=== PATIENT | female | born 1980 | race Caucasian/White ===

== ENCOUNTER 2023-12-21 13:52 | Outpatient (CLI) | payer OTHER, SELFPAY ==
[2023-12-21 17:31] LABS: Bacterial Vaginosis* Negative (Negative); Candida glab/krus NOT DETECTED (No Detected); Candida species NOT DETECTED (No Detected); Trichomonas vaginalis NOT DETECTED (No Detected)
== END 2023-12-21 13:53 | disposition home or self-care (01) ==
PROVIDERS: Visit Provider Registered Nurse
DX: N89.8 Other specified noninflammatory disorders of vagina (principal); R35.0 Frequency of micturition
CPT/HCPCS: 81513; 87086; 87481; 87624; 87661

== ENCOUNTER 2024-02-14 18:21 | Outpatient (CLI) | payer OTHER, SELFPAY ==
--- NOTE | 2024-02-14 18:40 | CRLHL7_ITS ---
For Patients: As a result of the Century Cures Act, medical imaging exams and procedure reports are released immediately into your electronic medical record. You may view this report before your referring provider. If you have questions, please contact your health care provider. BILATERAL SCREENING MAMMOGRAM WITH COMPUTER-AIDED DETECTION AND TOMOSYNTHESIS TECHNIQUE: CC and MLO views were obtained. These mammographic images have been obtained using full-field digital technique. These mammographic images were interpreted with the benefit of computer-aided detection. Breast Tomosynthesis was used in this interpretation. COMPARISON FILM: Baseline. FINDINGS: There are scattered areas of fibroglandular density IMPRESSION: There is no radiographic evidence for malignancy. ASSESSMENT: BI-RADS Category 1: Negative RECOMMENDATION: Routine screening mammogram in 1 year. A lay language report of this examination will be provided to the patient. Grady Smith M.D. Diagnostic Radiologist [email or web address] IRENE/Dictated by: Grady Smith MD @ 02/15/2024 9:01:00 AM (Electronically Signed)
== END 2024-02-14 18:22 | disposition home or self-care (01) ==
LOC: MAMMO 18:22
PROVIDERS: Visit Provider Registered Nurse
DX: Z12.31 Encounter for screening mammogram for malignant neoplasm of breast (principal)
CPT/HCPCS: 77063; 77067

== ENCOUNTER 2024-05-30 13:22 | Emergency (ER) | payer OTHER, SELFPAY ==
--- OUTSIDE RECORDS SUMMARY | 2024-05-30 13:25 | XMS_ITS | Clinical Summary ---
Author Organization [facility] Address [place], [place] [address] Care Team Providers Care Bilingual Teacher Name Role Phone Rosa Isela Parr Primary Care Provider [phone]- [phone] Allergies No known active allergies Medications tiZANidine (ZANAFLEX) 2 mg tabletIndications:C ervical paraspinal muscle spasm 1 tab up to three times daily, use mostly at night for muscle relaxer. May make you drowsy. 45 tablet. 0 Active spironolactone (ALDACTONE) 50 mg tabletIndications:H irsutism TAKE 1 TABLET BY MOUTH TWICE DAILY 180 Tablet 2 Active miscellaneous medical supply misc As directed. Ped pillows size 10 womens 1 unit 2 Active metFORMIN (GLUCOPHAGE) 500 mg tabletIndications:P COS (polycystic ovarian syndrome) TAKE 1 TABLET BY MOUTH WITH DINNER FOR 1 TO 2 WEEKS. INCREASE TO 1 TABLET WITH DINNER AND 1 TABLET WITH BREAKFAST 180 Tablet 2 Active PROXY UNCLASSIFIED MED (ORDER AWAITING PHARMACY ENTRY) Reports dietary supplements: Vitamin D, Vitamin B12, Magnesium 4 Active pantoprazole (PROTONIX) 40 mg delayed-release tabletIndications:G astroesophageal reflux disease without esophagitis Take 1 Tablet (40 mg) by mouth once daily before a meal. 90 Tablet 3 4 Active SUMAtriptan (IMITREX) 25 mg tabletIndications:C hronic nonintractable headache, unspecified headache type Take 1 Tablet (25 mg) by mouth 2 times daily if needed for Migraine. Give at minimum 2hrs apart. Max Dose: 200mg per 24hrs. 10 Tablet 3 4 Active warfarin (COUMADIN) 7.5 mg tabletIndications:H eterozygous factor V Leiden mutation (HC),Pulmonary embolism, unspecified chronicity, unspecified pulmonary embolism type, unspecified whether acute cor pulmonale present (HC),Anticoagulatio n monitoring, INR range 2-3 Take by mouth 7.5 mg (7.5 mg x 1) every day in the evening OR as directed 90 Tablet 4 Active warfarin (COUMADIN) 5 mg tabletIndications:H eterozygous factor V Leiden mutation (HC),Pulmonary embolism, unspecified chronicity, unspecified pulmonary embolism type, unspecified whether acute cor pulmonale present (HC),Anticoagulatio n monitoring, INR range 2-3 *Not currently using this strength tablet 4 Active Active Problems Problem Noted Date Diagnosed Date Anticoagulation monitoring, INR range 2-3 2023 Pulmonary embolism, unspecif ied chronicity, unspecified pulmonary embolism type, unspecified whether acute cor pulmonale present 12/02/2023 Gastroesophageal reflux disease without esophagi tis 02/11/2021 Vaginal pain 01/02/2019 Interstitial cystitis (chronic) without hematuri a 01/02/2019 Polycystic ovarian syndrome 08/06/2018 S/P Right Knee Arthroscopic PartialLateral Meniscectomy 35%, 01/05/[address] 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 Acute lateral meniscus tear of right knee Resolved Problems Problem Noted Date Diagnosed Date Resolved Date Obesity complicating peripre gnancy, antepartum 03/22/2013 12/28/2016 Right facial numbness 03/05/20132016 03/05/2013 12/28/2016 Smoker 12/04/2012 12/05/2023 Cigarette nicotine dependenc e without complication 07/26/2007 12/05/2023 Overview (12/30/2020): Tobacco Abuse Encounters Date Type Department Care Team Description 05/30/2024 Nurse Triage [facility] [address] [facility] [address] Rosa Isela Parr PA Head Injury 04/12/2024 10:15 AM ASSOCIATE PROFESSOR PHYSICIAN Orders Only [facility] [address] [place] [id number] Lab, [facility] 04/12/2024 Refill [facility] [address] [place] [address] Rosa Isela Parr PA Refill Request (Warfarin) 04/12/2024 Anticoagulation (warfarin) [facility] [address] [facility] [address] [facility], [facility] Anticoagulation 04/12/2024 Travel 03/28/2024 1:40 PM ASSOCIATE PROFESSOR PHYSICIAN Office Visit [facility] [place] [facility] [address] [place] [address] Brandon Villanueva MD Consult (Mass of temporal lobe, chronic nonintractable headache, vision changes /Ref: Rosa Isela Parr PA-C /MR Head/Brain 12/29/23, 06/27/20, 03/05/13 /CT Head/Brain 10/31/21 @ [facility] (pushed 01/04/24) /CT Head/Brain 06/23/20, 03/05/13 /MR Cervical 01/24/19 /MRA Head/Brain/Neck 03/05/13 /MR Head/Brain Venogram 03/05/13 /[facility] notes in scans /[facility] notes in scans ) 03/28/2024 11:15 AM ASSOCIATE PROFESSOR PHYSICIAN Orders Only [facility] [address] [facility] [address] [facility] 03/28/2024 Anticoagulation (warfarin) [facility] [address] [place] [address] 1, [facility] Anticoagulation 03/28/2024 Travel 03/21/2024 Telephone [facility] [address] [place] [address] Rosa Isela Parr PA Anticoagulation (Questions) 03/13/2024 Telephone [facility] [address] [place] [address] Rosa Isela Parr PA Results (INR ) 03/12/2024 2:15 PM ASSOCIATE PROFESSOR PHYSICIAN Ancillary Procedure [address] [address] 03/12/2024 1:25 PM ASSOCIATE PROFESSOR PHYSICIAN Office Visit [address] [address] Kathie Vazquez MD Arm Pain/problem (Right shoulder/Arm, NKI, can't rotate/lift arm. Tramadol and muscle relaxer does not work ) 03/12/2024 Travel 03/01/[address] [address] Rosa Isela Parr PA Anticoagulation (Unable to contact) 02/28/2024 8:30 AM ASSOCIATE PROFESSOR PHYSICIAN Orders Only [address] [address] Lab, [facility] 02/28/2024 Anticoagulation (warfarin) [address] [address], [facility] Anticoagulation 02/28/2024 Travel from Last 3 Months Immunizations Name Administration Dates Next Due DTP 12/09/1987, 8,09/16/1984,1983,02/16/1983,1982,1982 Hepatitis B (Peds) 09/30/1999,07/08/1998, 996 Influenza Virus, Unspecified 01/08/2013, 01/14/2009,04/05/2008,2003 Influenza, IIV3 (Age 6-35 mos) 01/08/2013 Influenza, IIV3 (Age >=3 years) 01/09/20 13,01/14/2009,04/05/2008,2003 Influenza, IIV4 03/28/2020,03/20/2019 MMR 12/03/1994,09/17/1983 Oral Polio Vaccine 12/09/1987, 5,1982,1982 Pneumococcal Poly,23-Valent (Pneumovax) 07/02/2013 Polio (Oral Polio Vaccine,Unspecified) 12/09/1987,09/16/1984,1982,1982 Polio Virus, Unspecified 12/09/1987,0604/1984,1982,1982 Td (Age >=7 Years) 04/17/2005,07/01/2003, 999 Tdap 04/26/2013,11/09/2010 Family History Medical History Relation Name Comments Clotting disorder Mother factor V Stroke Mother Factor V [place] Anesthesia Problem No Family History Migraines No Family History Relation Name Status Comments Mother Social History Tobacco Use Types Packs/Day Years Used Date Smoking Tobacco: Every Day Cigarettes 0.5 20 Smokeless Tobacco: Never Tobacco Cessation:Ready to Q uit: Yes; Counseling Given: Yes Comments:Been trying to quit Alcohol Use Standard Drinks/Week Comments Not Currently 0 (1 standard drink = 0.6 oz pur e alcohol) Rarely PHQ-2 Answer Date Recorded PHQ-2 TOTAL SCORE 2 12/22/2023 Social Connections Answer Date Recorded Do you often feel lonely or isolated from those around you? 0 12/02/2023 Financial Resource Strain Answer Date R ecorded Difficulty of Paying Living Expenses 3 12/02/2023 Difficulty of Paying Living Expenses Not on file 12/02/2023 Food Insecurity Answer Date Recorded Do you worry your food will run out before you are able to buy more? 1 12/02/2023 Transportation Needs Answer Date Record ed Does lack of transportation keep you from medica l appointments? 1 12/02/2023 Does lack of transportation keep you from work, meetings or getting things that you need? 1 12/02/2023 Housing Stability Answer Date Recorded What is your housing situation today? 1 12/02/2023 Utilities Answer Date Recorded Do you have trouble paying f or utilities (for example, heat, electricity, water, phone)? 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 Not on file Not on zackery e Obstetrics History Para Term AB IAB SAB Ectopic Multiple Livin g Live Births 4 4 4 0 0 0 0 0 4 4 Date Outcome GA Total Labor Labor/2nd/3rd Weight Sex Type Anes PTL Jeanna A1 A5 Name Clin Term Vag Livin g 2002 Term 38w 0d 18h 00m/ 3.52 kg (7 lb 12 oz) M Vag-S pont Epidur al Livin g Lucy 2008 Term 38w 1d 18h 00m/ 3.54 kg (7 lb 13 oz) M Livin g Ravinder lyons Delivery Location:[facility] Comments:ind/hx of dvt 2013 Term 37w 3d 3.54 kg (7 lb 13 oz) M Vag-S pont Epidur al Livin g Deniz Bautista Delivery Location:[facility] Last Filed Vital Signs Vital Sign Reading Time Taken Comments Blood Pressure 120/82 03/28/2024 1:41 PM ASSOCIATE PROFESSOR PHYSICIAN Pulse 84 03/28/2024 1:41 PM ASSOCIATE PROFESSOR PHYSICIAN Temperature 36.9 C (98.4 F) 08/28/2021 3:29 PM CDT Respiratory Rate 18 07/29/2021 9:11 AM CDT Oxygen Saturation 97% 03/28/2024 1:41 PM ASSOCIATE PROFESSOR PHYSICIAN Inhaled Oxygen Concentration - - Weight 99.7 kg (219 lb 12.8 oz) 03/28/2024 1:41 PM ASSOCIATE PROFESSOR PHYSICIAN Height 162.6 cm (5' 4) 03/12/2024 1:31 PM ASSOCIATE PROFESSOR PHYSICIAN Body Mass Index 37.73 03/12/2024 1:31 PM ASSOCIATE PROFESSOR PHYSICIAN Plan of Treatment Health Maintenance Due Date Last Done Comments Pneumococcal series for age 6-49 (2 of 2 - PCV) 07/02/2014 07/02/2013 Tetanus booster 04/26/2023 04/26/2013, 10/17, 04/17/2005, Additional history exists COVID-19 vaccine series ( season) 2023 Influenza for age 9-49 12/18/2023 0, 03/20/2019, 12/28/2016, Additional history exists Depression screening for age 12+ 12/21/2024 12/22/2023, 12/22/2023, 12/22/2023, Additional history exists BMI (ht and wt on same day) for age 18+ 03/12/2025 03/12/2024, 12/22/2023, 12/16/2021, Additional history exists Pap test for age 21-65 12/20/2026 , 12/21/2023, 12/21/2023 (Completed outside of [facility]), Additional history exists Tdap Completed 04/26/2013, 11/09/2010 Hepatitis C screening for ag e 18-79 Completed 09/16/2018, 03/17/2017, 05/26/2016 HIV for age 15-65 Completed 12/16/2021, , 05/10/2018, Additional history exists Procedures Procedure Name Priority Date/Time Associated Diagnosis Comments PROTIME-INR Routine 04/12/2024 10:15 AM ASSOCIATE PROFESSOR PHYSICIAN Heterozygous factor V Leiden mutation (HC) Pulmonary embolism, unspecified chronicity, unspecified pulmonary embolism type, unspecified whether acute cor pulmonale present (HC) Anticoagulation monitoring, INR range 2-3 INR,POCT Routine 03/28/2024 11:18 AM ASSOCIATE PROFESSOR PHYSICIAN Heterozygous factor V Leiden mutation (HC) Pulmonary embolism, unspecified chronicity, unspecified pulmonary embolism type, unspecified whether acute cor pulmonale present (HC) Anticoagulation monitoring, INR range 2-3 XR SHOULDER 3 VIEWS RIGHT Routine 03/12/2024 2:19 PM ASSOCIATE PROFESSOR PHYSICIAN Acute pain of right shoulder PROTIME-INR Routine 02/28/2024 8:34 AM ASSOCIATE PROFESSOR PHYSICIAN Heterozygous factor V Leiden mutation (HC) Pulmonary embolism, unspecified chronicity, unspecified pulmonary embolism type, unspecified whether acute cor pulmonale present (HC) Anticoagulation monitoring, INR range 2-3 HPV HIGH RISK Routine 12/21/2023 2:00 PM CDT ANTI HIV 1/2 Routine 12/16/2021 12:35 PM CDT Screening for STD (sexually transmitted disease) ANTI HCV Routine 09/16/2018 1:56 PM CDT Visit for screening for infections w/predomly sexual mode transmission from Last 3 Months or Most Recently Relevant to Health Maintenance Results * (ABNORMAL) PROTIME-INR [11993.0] - Standing Order (04/12/2024 10:15 AM ASSOCIATE PROFESSOR PHYSICIAN) Only the most recent of2 resultswithin the time period is included. INR 3.0(H) <1.3 04/12/2024 10:47 AM ASSOCIATE PROFESSOR PHYSICIAN [facility] PROTIME 34.4(H) 10.6 - 12.4 sec 04/12/2024 10:47 AM ASSOCIATE PROFESSOR PHYSICIAN [facility] Blood BLOOD SPECIMEN / Unknown [facility] / Unknown 04/12/2024 10:15 AM ASSOCIATE PROFESSOR PHYSICIAN 04/12/2024 10:27 AM ASSOCIATE PROFESSOR PHYSICIAN [facility] - 04/12/2024 10:47 AM ASSOCIATE PROFESSOR PHYSICIAN Therapeutic Range 2.0-3.0 for most anticoagulated patients 2.5-3.5 or 4.0 for high risk patients The INR is only used for patients on stable oral anticoagulant therapy. It makes no significant contribution to the diagnosis or treatment of patients whose Protime is prolonged for other reasons. INR results are increased when heparin levels exceed 1.0 U/mL, which corresponds to an aPTT >125 seconds if the patient is on UFH. us Rosa Isela [facility] Final Resu lt [facility] [address] [place] [address] * (ABNORMAL) INR - POCT [[id number]] - Standing Order (03/28/2024 11:18 AM ASSOCIATE PROFESSOR PHYSICIAN) INR 1.6(H) ratio [facility] Comment: INRs >2.9 may be falsely elevated in patients receiving either unfractionated Heparin or Low Molecular Weight Heparin. Follow up testing in a hospital laboratory may be helpful if clinically indicated. INR results of > or = 5.0 should be verified using the standard venipuncture procedure. Reference Range 0.9-1.1 Moderate-intensity Warfarin Therapy 2.0-3.0 Higher-intensity Warfarin Therapy 3.0-4.0 PROTHROMBIN TIMEP 19.6(H) 10.5 - 13.1 sec [facility] Comment: Point of care fingerstick Prothrombin Time/INR results may vary from venous Prothrombin Time/INR methodologies. Any results exhibiting inconsistency with the patient's clinical status should be repeated using a venous Prothrombin Time/INR method. Blood BLOOD SPECIMEN / Unknown 03/28/2024 11:18 AM ASSOCIATE PROFESSOR PHYSICIAN 03/28/2024 11:19 AM ASSOCIATE PROFESSOR PHYSICIAN us Rosa Isela [facility] Final Resu lt [facility] [address] [place] [address], [facility] [address] [place] [address] * XR SHOULDER 3 VIEWS RIGHT (03/12/2024 2:19 PM ASSOCIATE PROFESSOR PHYSICIAN) Anatomical Region Laterality Modality SHOULDERS, SHOULDER R Computed R adiography 03/13/2024 9:57 AM ASSOCIATE PROFESSOR PHYSICIAN Narrative 03/13/2024 9:57 AM ASSOCIATE PROFESSOR PHYSICIAN For Patients: As a result of the Century Cures Act, medical imaging exams and procedure reports are released immediately into your electronic medical record. You may view this report before your referring provider. If you have questions, please contact your health care provider. INDICATION: Acute right shoulder pain. TECHNIQUE: Three views of the right shoulder. COMPARISON: 07/07/2020. FINDINGS: Calcific tendonitis adjacent to the greater tuberosity, new from the prior exam. No other bone, joint, or soft tissue abnormality. Dictated by Romero Mcclain MD @ 03/13/2024 9:57:38 AM (Electronically Signed) Procedure Note Romero Mcclain MD - 03/13/2024 For Patients: As a result of the Cures Act, medical imagingexams and procedure reports are released immediately into your electronicmedical record. You may view this report before your referring provider.If you have questions, please contact your health care provider. INDICATION: Acute right shoulder pain. TECHNIQUE: Three views of the right shoulder. COMPARISON: 07/07/2020. FINDINGS: Calcific tendonitis adjacent to the greater tuberosity, new from the priorexam. No other bone, joint, or soft tissue abnormality. Dictated by Romero Mcclain MD @ 03/13/2024 9:57:38 AM (Electronically Signed) us Kathie Vazquez MD GENERAL IMAGING Final R esult * HPV HIGH RISK (12/21/2023 2:00 PM CDT) TYPE 16 Negative Negative 12/27/2023 11:26 AM CDT [facility] LAB[facility] TYPE 18 Negative Negative 12/27/2023 11:26 AM CDT [facility] OTHER HIGH RISK TYPES Negative Negative 12/27/2023 11:26 AM CDT [facility] Other (Cervical) 12/21/2023 2:00 PM CDT 12/23/2023 2:02 PM CDT Narrative [facility] - 12/27/2023 11:26 AM CDT HPV types 16, 18, 31, 33, 35, 39, 45, 51, 52, 56, 58, 59, 66 and 68 DNA were undetectable or below the pre-set threshold. Methodology: Jae Carlos 4800 HPV Test us Lexie Oliva NP MICROBIOLOGY Final Res ult [facility] [address] [place] [address], * ANTI HIV 1/2 (12/16/2021 12:35 PM CDT) HIV-1/HIV-2 ANTIBODY Non-Reacti ve Non-Reacti ve 12/17/2021 12:25 PM CDT [facility] Comment:HIV-1 p24 and HIV-1/ HIV-2 Ab not detected. Blood BLOOD SPECIMEN / Unknown Venipuncture / Unknown 12/16/2021 12:35 PM CDT 12/16/2021 12:39 PM CDT us Cyndi Braun MD SEND OUTS F inal Result [facility] [address] [place] [address], [place] * ANTI HCV (09/16/2018 1:56 PM CDT) HEPATITIS C ANTIBODY Non-React malinda Non-React malinda 09/16/2018 5:01 PM CDT [facility] Comment:Antibodies to HCV no t detected; does not exclude the possibility of exposure to HCV. Blood BLOOD SPECIMEN / Unknown Venipuncture / Unknown 09/16/2018 1:56 PM CDT 09/16/2018 1:59 PM CDT us Tutu Anand MD SEND OUTS Final Re sult [facility] [address] [place] [address], from Last 3 Months or Most Recently Relevant to Health Maintenance Insurance [employer] Advance Directives * Full Code (Latest Code Status on File) Date Activated Date Inactivated Comments 03/05/2013 3:31 AM 03/05/2013 9:16 PM Care Teams Bilingual Teacher Relationship Specialty Start Date End Date Rosa Isela Parr PA [facility] [address] PCP - General Physician Honing Job Setter 12/05/23
[2024-05-30 14:05] VITALS: BP 125/87; PULSE 80; RESP 18; TEMP 36.6; O2SAT 98; BMI 37.6
--- NOTE | 2024-05-30 15:33 | ED.GENADULT ---
HPI - General Adult General Date Seen: 05/30/24 Chief complaint: Head Injury/Pain Stated complaint: Hit head, on blood thinners Time Seen by Provider: 05/30/24 15:27 History of Present Illness HPI narrative: 43 yo F with a history of factor 5 Leiden, pulmonary emboli, DVTs, on chronic warfarin anticoagulation, GERD, presenting to the ER today for evaluation of head injury. She is on warfarin. Recent INRs have been subtherapeutic, and she is due for an INR check in a couple of weeks. She was at work today. 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 When she stood up she accidentally bumped the occiput of her head against the side mirror of a truck. She was not knocked out but did fall to the floor. She was momentarily dazed. After the head injury she was able to get up and walk. She had a headache. She felt woozy and a little bit sleepy. She was nauseous with I time but since then has no longer been nauseous. She is referred to the ER ER today by triage line because she is on warfarin. On that she is here in the ER headache is improving. Nausea is improving. She is still feeling a little bit dizzy and off but overall doing better. No other injuries from the accident. Related Data Home Medications ?Medication ?Instructions ?Recorded ?Confirmed metformin 500 mg tablet 500 mg PO QDAY 12/21/23 05/30/24 pantoprazole 40 mg tablet,delayed 40 mg PO QDAY 12/21/23 05/30/24 release spironolactone 50 mg tablet 50 mg PO QAM 12/21/23 05/30/24 tizanidine 2 mg capsule 2 mg PO Q8H PRN 12/21/23 05/30/24 warfarin 5 mg tablet 5 mg PO QMWF 12/21/23 05/30/24 Allergies Allergy/AdvReac Type Severity Reaction Status Date / Time No Known Drug Allergies Allergy Verified 05/30/24 14:13 PFSH [facility] Medical History (Updated 05/30/24 @ 15:57 by Ricardo Lee MD) Lateral meniscus tear ?S83.289A - Other tear of lateral meniscus, current injury, unspecified knee, initial encounter (ICD-10) Surgical History (Updated 12/22/23 @ 10:03 by Lexie Oliva CNP) H/O abdominoplasty ?Z98.890 - Other specified postprocedural states (ICD-10) Hazen teeth extracted ?K08.409 - Partial loss of teeth, unspecified cause, unspecified class (ICD-10) S/P arthroscopic partial lateral meniscectomy ?Z98.890 - Other specified postprocedural states (ICD-10) Family History (Updated 12/22/23 @ 10:03 by Lexie Oliva CNP) Mother Stroke Coagulation disorder Grandmother Breast cancer Diabetes Grandfather Diabetes Social History (Updated 12/21/23 @ 13:19 by Valerie Hamilton MA) What is your current living situation?: I presently have a place to live Problems where you live: no known problems In the past 12 months, utilities in danger of being shut off: no In past 12 months, lack of transportation kept you from medical appts, meetings, work, or getting things needed for daily living: no In the past 12 mos, have been you worried that your food would run out before you had money to buy more?: never true In the past 12 mos, the food you bought just didn't last and you didn't have money to buy more?: never true How often does anyone, including family, friends and others, physically hurt you: never How often does anyone, including family, friends and others, insult or talk down to you: never How often does anyone, including family, friends and others, threaten you with harm: never How often does anyone, including family, friends and others, scream or curse at you: never Exam Narrative: Exam Narrative: Constitutional: Appears well-developed and well-nourished. Alert. Conversant. Non toxic. HENT: Head: Atraumatic. No depressed skull fracture, Raccoon Eyes, Redd's sign, or hemotympanum. Face normal. TMs normal Nose: Nose normal. Mouth/Throat: Oral mucosa is clear and moist. no trismus. Pharynx normal. Tonsils symmetric. No tonsillar enlargement, erythema, or exudate. Eyes: Conjunctivae normal. EOM normal. Pupils equal, round, and reactive to light. No scleral icterus. Neck: Normal range of motion. Neck supple. No tracheal deviation present. Cardiovascular: Normal rate, regular rhythm. No gallop. No friction rub. No murmur heard. Pulmonary/Chest: Effort normal. No stridor. No respiratory distress. No wheezes. No rales. No rhonchi . No tenderness. Abdominal: Soft. No distension. No mass. No tenderness. No rebound. No guarding. Musculoskeletal: RUE: Normal range of motion. No tenderness. No deformity LUE: Normal range of motion. No tenderness. No deformity RLE: Normal range of motion. No edema. No tenderness. No deformity LLE: Normal range of motion. No edema. No tenderness. No deformity Neurological: Mental status normal. Attention normal. Alert and oriented x3. GCS 15. Memory normal. Speech fluent. Cognition normal. Cranial Nerves intact II-XII except I did not formally test gag or visual acuity. EOMI. Palate elevates symmetrically and tongue protrudes in the midline. Strength: 5/5 trapezius on the right and left 5/5 deltoid on the right and left 5/5 biceps on the right and left 5/5 triceps on the right and left 5/5 benzol still operator on the right and left 5/5 thumb opposition on the right and left 5/5 finger abduction on the right and left 5/5 hip flexors (L3) on the right and left 5/5 quadriceps (L4) on the right and left 5/5 tibialis anterior on the right and left 5/5 EHL (L5) on the right and left 5/5 gastrocnemius (S1) on the right and left 5/5 hamstring on the right and left Sensation intact to light touch in both upper extremities (C4-T1) Sensation intact to light touch in Both lower extremities (L4-S1). Finger to nose and coordination normal. Gait normal. Skin: Skin is warm and dry. No rash noted. No pallor. Normal capillary refill. Psychiatric: Normal mood. Normal affect. Const: Vital Signs, click to edit/add: Vital Signs - 24 hr 05/30/24 14:05 Temperature 97.8 F Pulse Rate [Right Pulse Oximeter] 80 Respiratory Rate 18 Blood Pressure [Ri ght Upper Arm] 125/87 Pulse Oximetry 98 Oxygen Delivery Me thod Room Air Course Vital Signs Vital signs: Initial Vital Signs Temperature 97.8 F 05/30/24 14:05 Temperature Source Temporal Artery Scan 05/30/24 14:05 Pulse Rate 80 05/30/24 14:05 Pulse Rhythm Regular 05/30/24 14:05 Pulse Strength 3+ Normal 05/30/24 14:05 Respiratory Rate 18 05/30/24 14:05 Blood Pressure 125/87 05/30/24 14:05 Blood Pressure Mean 99 05/30/24 14:05 Blood Pressure Position Sitting 05/30/24 14:05 Pulse Oximetry 98 05/30/24 14:05 Oxygen Delivery Method Room Air 05/30/24 14:05 Vital Signs Temperature 97.8 F 05/30/24 14:05 Pulse Rate 80 05/30/24 14:05 Respiratory Rate 18 05/30/24 14:05 Blood Pressure 125/87 05/30/24 14:05 Pulse Oximetry 98 05/30/24 14:05 Oxygen Delivery Method Room Air 05/30/24 14:05 Temperature 97.8 F 05/30/24 14:05 Pulse Rate 80 05/30/24 14:05 Respiratory Rate 18 05/30/24 14:05 Blood Pressure 125/87 05/30/24 14:05 Pulse Oximetry 98 05/30/24 14:05 Oxygen Delivery Method Room Air 05/30/24 14:05 Medical Decision Making MDM Narrative Medical decision making narrative: This patient presents with blunt head trauma. Differential includes intracranial injuries (e.g. skull fracture, epidural hematoma, subdural hematoma, intracerebral hemorrhage, and traumatic subarachnoid hemorrhage), verses concussion or other traumatic brain injury. CT imaging was obtained and fortunately was normal. At this time it appears that the patient's symptoms are due to a concussion. She is on warfarin. Recent INR checked a few days ago slightly subtherapeutic. Therefore will hold off on INR checked today. She is on risk for delayed bleeding. Discussed precautions for return to the ER need for repeat CT scan if she has any worsening symptoms. The patient/family understand that they must return if any red flags appear/develop in the coming hours/days, as this may represent an indication to perform a repeat CT scan or further evaluation. I have noted that red flags include: headaches that get worse, increased drowsiness, strange behavior, repetitive speech, seizures, repeated vomiting, growing confusion, increased irritability, slurred speech, weakness or numbness, and loss of responsiveness. This information will also be provided in writing at discharge. I have discussed the second impact syndrome, and the importance of not sustaining repeated concussion in the next 1-2 weeks. Post concussive syndrome is also discussed. The patient's questions have been answered. She has no other injuries. No neck pain or C-spine pain. At this point I do not think she needs further CT imaging, lab workup. She politely declines prescription nausea medications or other meds for pain. She feels comfortable managing with Tylenol as needed. Imaging Data CT scan - head: Attestation: I have reviewed the pertinent imaging results. Radiologist's impression: IMPRESSION: No radiographic evidence of acute intracranial abnormalities. Discharge Plan Discharge Clinical Impression: Concussion Patient Disposition: Home, Self-Care Condition: Stable Instructions: Concussion (ED) Additional Instructions: As we discussed, please follow-up for INR check as planned Return to the ER right away if you have any worsening symptoms such as worsening headache, confusion, dizziness, nausea and vomiting, unsteady gait, or any problems so that we can perform a repeat CT scan If you notice any other problems, or other new injuries, please come back to the ER to be rechecked Prescriptions: No Action pantoprazole 40 mg tablet,delayed release (DR/EC) 40 mg PO QDAY warfarin 5 mg tablet 5 mg PO QMWF metformin 500 mg tablet 500 mg PO QDAY spironolactone 50 mg tablet 50 mg PO QAM tizanidine 2 mg capsule 2 mg PO Q8H PRN Follow Up/Referrals: Provider,Not a Local [Non-Staff] - Stand Alone Forms: [email or web address] Info Instructions
--- OUTSIDE RECORDS SUMMARY | 2024-05-30 16:08 | XMS_ITS | Clinical Summary ---
Author Organization [facility] Address [place], [place] [address] Care Team Providers Care Slitting Machine Operator Helper Name Role Phone Rosa Isela Parr Primary Care Provider [phone] Allergies No known active allergies Medications tiZANidine [...] Department Care Team Description 05/30/2024 Nurse Triage [facility] [address] [facility] [address] Rosa Isela Parr PA Head Injury 04/12/2024 10:15 AM CLEANING MAID Orders Only [facility] [address] [place] [id number] Lab, [facility] Lab 04/12/2024 Refill [facility] [address] [place] [address] Rosa Isela Parr PA Refill Request (Warfarin) 04/12/2024 Anticoagulation (warfarin) [facility] [address] [facility] [address] [facility], [facility] Anticoagulation 04/12/2024 Travel 03/28/2024 1:40 PM CLEANING MAID Office Visit [facility] [place] [facility] [address] [place] [address] Brandon Villanueva MD Consult (Mass of temporal lobe, chronic nonintractable headache, vision changes /Ref: Rosa Isela Parr PA-C /MR Head/Brain 12/29/23, 06/27/20, 03/05/13 /CT Head/Brain 10/31/21 @ [facility] (pushed 01/04/24) /CT Head/Brain 06/23/20, 03/05/13 /MR Cervical 01/24/19 /MRA Head/Brain/Neck 03/05/13 /MR Head/Brain Venogram 03/05/13 /[facility] notes in scans /[facility] notes in scans ) 03/28/2024 11:15 AM CLEANING MAID Orders Only [facility] [address] [facility] [address] Lab, [facility] 03/28/2024 Anticoagulation (warfarin) [facility] [address] [place] [address] 1, [facility] Anticoagulation 03/28/2024 Travel 03/21/2024 Telephone [facility] [address] [place] [address] Rosa Isela Parr PA Anticoagulation (Questions) 03/13/2024 Telephone [facility] [address] [place] [address] Rosa Isela Parr PA Results (INR ) 03/12/2024 2:15 PM CLEANING MAID Ancillary Procedure [address] [address] 03/12/2024 1:25 PM CLEANING MAID Office Visit [address] [address] Kathie Vazquez MD Arm Pain/problem (Right shoulder/Arm, NKI, can't rotate/lift arm. 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 Not on file Not on file Not [...] oz) M Livin g Ravinder lyons [facility] Comments:ind/hx of dvt 2013 Term 37w 3d 3.54 kg (7 lb 13 oz) M Vag-S pont Epidur al Livin g Deniz Bautista Delivery Location:[facility] Last Filed Vital Signs Vital Sign Reading Time Taken Comments Blood Pressure 120/82 03/28/2024 1:41 PM CLEANING MAID Pulse 84 03/28/2024 1:41 PM CLEANING MAID Temperature 36.9 C (98.4 F) 08/28/2021 3:29 PM CDT Respiratory Rate 18 07/29/2021 9:11 AM CDT Oxygen Saturation 97% 03/28/2024 1:41 PM CLEANING MAID Inhaled Oxygen Concentration - - Weight 99.7 kg (219 lb 12.8 oz) 03/28/2024 1:41 PM CLEANING MAID Height 162.6 cm (5' 4) 03/12/2024 1:31 PM CLEANING MAID Body Mass Index 37.73 03/12/2024 1:31 PM CLEANING MAID Plan of Treatment Health Maintenance Due Date [...] 12/20/2026 , 12/21/2023, 12/21/2023 (Completed outside of [facility]), Additional history exists Tdap Completed 04/26/2013, 11/09/2010 Hepatitis C screening for ag e 18-79 Completed 09/16/2018, 03/17/2017, 05/26/2016 HIV for age 15-65 Completed 12/16/2021, , 05/10/2018, Additional history exists Procedures Procedure Name Priority Date/Time Associated Diagnosis Comments PROTIME-INR Routine 04/12/2024 10:15 AM CLEANING MAID Heterozygous factor V Leiden mutation (HC) Pulmonary embolism, unspecified chronicity, unspecified pulmonary embolism type, unspecified whether acute cor pulmonale present (HC) Anticoagulation monitoring, INR range 2-3 INR,POCT Routine 03/28/2024 11:18 AM CLEANING MAID Heterozygous factor V Leiden mutation (HC) Pulmonary embolism, unspecified chronicity, unspecified pulmonary embolism type, unspecified whether acute cor pulmonale present (HC) Anticoagulation monitoring, INR range 2-3 XR SHOULDER 3 VIEWS RIGHT Routine 03/12/2024 2:19 PM CLEANING MAID Acute pain of right shoulder PROTIME-INR Routine 02/28/2024 8:34 AM CLEANING MAID Heterozygous factor V Leiden mutation (HC) Pulmonary [...] to Health Maintenance Results * (ABNORMAL) PROTIME-INR [[id number]] - Standing Order (04/12/2024 10:15 AM CLEANING MAID) Only the most recent of2 resultswithin the time period is included. INR 3.0(H) <1.3 04/12/2024 10:47 AM CLEANING MAID [facility] PROTIME 34.4(H) 10.6 - 12.4 sec 04/12/2024 10:47 AM CLEANING MAID [facility] Blood BLOOD SPECIMEN / Unknown [facility] / Unknown 04/12/2024 10:15 AM CLEANING MAID 04/12/2024 10:[address] [facility] - 04/12/2024 10:47 AM CLEANING MAID Therapeutic Range 2.0-3.0 for most anticoagulated patients [...] Rosa Isela SAUCEDO HEMATOLOGY Final Resu lt [facility] [address] [place] [address] * (ABNORMAL) INR - POCT [[id number]] - Standing Order (03/28/2024 11:18 AM CLEANING MAID) INR 1.6(H) ratio [facility] Comment: INRs >2.9 may be falsely elevated [...] PROTHROMBIN TIMEP 19.6(H) 10.5 - 13.1 sec [facility] Comment: Point of care fingerstick Prothrombin Time/INR results may vary from venous Prothrombin Time/INR methodologies. Any results exhibiting inconsistency with the patient's clinical status should be repeated using a venous Prothrombin Time/INR method. Blood BLOOD SPECIMEN / Unknown 03/28/2024 11:18 AM CLEANING MAID 03/28/2024 11:19 AM CLEANING MAID us Rosa Isela [facility]O [facility]OR[facility] Final Resu lt [facility] [address] [place] [address], [facility] [address] [place] [address] * XR SHOULDER 3 VIEWS RIGHT (03/12/2024 2:19 PM CLEANING MAID) Anatomical Region Laterality Modality SHOULDERS, SHOULDER R Computed R adiography 03/13/2024 9:57 AM CLEANING MAID Narrative 03/13/2024 9:57 AM CLEANING MAID For Patients: As a result of the [...] 16 Negative Negative 12/27/2023 11:26 AM CDT [facility] TYPE 18 Negative Negative 12/27/2023 11:26 AM CDT [facility] OTHER HIGH RISK TYPES Negative Negative 12/27/2023 11:26 AM CDT [facility] Other (Cervical) 12/21/2023 2:00 PM CDT 12/23/2023 2:02 PM CDT Narrative [facility] - 12/27/2023 11:26 AM CDT HPV types 16, 18, 31, 33, 35, 39, 45, 51, 52, 56, 58, 59, 66 and 68 DNA were undetectable or below the pre-set threshold. Methodology: Jae Carlos 4800 HPV Test us Lexie Oliva NP MICROBIOLOGY Final Res ult [facility] [address] [place] [address], * ANTI HIV 1/2 (12/16/2021 12:35 PM CDT) HIV-1/HIV-2 ANTIBODY Non-Reacti ve Non-Reacti ve 12/17/2021 12:25 PM CDT [facility] Comment:HIV-1 p24 and HIV-1/ HIV-2 Ab not detected. Blood BLOOD SPECIMEN / Unknown Venipuncture / Unknown 12/16/2021 12:35 PM CDT 12/16/2021 12:39 PM CDT us Cyndi Braun MD SEND OUTS F inal Result [facility] [address] [place] [address], [place] * ANTI HCV (09/16/2018 1:56 PM CDT) HEPATITIS C ANTIBODY Non-React malinda Non-React malinda 09/16/2018 5:01 PM CDT [facility] Comment:Antibodies to HCV no t detected; does not exclude the possibility of exposure to HCV. Blood BLOOD SPECIMEN / Unknown Venipuncture / Unknown 09/16/2018 1:56 PM CDT 09/16/2018 1:59 PM CDT us Tutu Anand MD SEND OUTS Final Re sult [facility] [address] [place] [address], from Last 3 Months or Most Recently Relevant to Health Maintenance Insurance [employer] Advance Directives * Full Code (Latest Code Status on File) Date Activated Date Inactivated Comments 03/05/2013 3:31 AM 03/05/2013 9:16 PM Care Teams Slitting Machine Operator Helper Relationship Specialty Start Date End Date Rosa Isela Parr PA [facility] [address] PCP - General Physician Shirt Maker 12/05/23
== END 2024-05-30 16:19 | disposition home or self-care (01) ==
PROVIDERS: Emergency Provider Emergency Medicine; PCP Physician Assistant
DX: S06.0X0A Concussion without loss of consciousness, initial encounter (principal); W22.09XA Striking against other stationary object, initial encounter
CPT/HCPCS: 70450; 99283; 99284

== ENCOUNTER 2024-10-24 14:21 | Outpatient (CLI) | payer OTHER, SELFPAY ==
[2024-10-24 19:13] LABS: Chlamydia DNA Amplified* NOT DETECTED (No Detected); GC DNA Amplified* NOT DETECTED (No Detected)
== END 2024-10-24 14:22 | disposition home or self-care (01) ==
PROVIDERS: PCP Physician Assistant; Visit Provider Obstetrics & Gynecology
DX: R10.2 Pelvic and perineal pain (principal); R39.15 Urgency of urination; Z11.3 Encounter for screening for infections with a predominantly sexual mode of transmission
CPT/HCPCS: 81513; 87086; 87481; 87491; 87591; 87661

== ENCOUNTER 2024-11-09 10:43 | Outpatient (CLI) | payer OTHER, SELFPAY ==
--- NOTE | 2024-11-09 10:45 | CRLHL7_ITS ---
For Patients: As a result of the Century Cures Act, medical imaging exams and procedure reports are released immediately into your electronic medical record. You may view this report before your referring provider. If you have questions, please contact your health care provider. CLINICAL HISTORY: Pelvic pain and frequent urination without UTI TECHNIQUE: Transabdominal and transvaginal pelvic ultrasound. Transvaginal images of the pelvis were obtained for better visualization of the ovaries. Grayscale , color and spectral Doppler images were submitted. COMPARISON: None FINDINGS: Uterus: 9.8 x 3.9 x 4.8 cm. Retroflexed. Endometrium: 11 mm Normal appearance. Right ovary: 4.9 x 2.5 x 2.7 cm Normal appearance. Normal color and spectral Doppler flow. Left ovary: 3.0 x 2.2 x 3.0 cm Normal appearance. Normal color and spectral Doppler flow. Moderate fluid in the adnexae, more on the left. Left fallopian tube is outlined by fluid but appears grossly normal. IMPRESSION: Normal pelvic ultrasound. Dictated by Romero Mcclain MD @ 11/14/2024 8:53:24 AM (Electronically Signed)
== END 2024-11-09 10:44 | disposition home or self-care (01) ==
LOC: US 10:43
PROVIDERS: PCP Physician Assistant; Visit Provider Obstetrics & Gynecology
DX: R10.2 Pelvic and perineal pain (principal)
CPT/HCPCS: 76830; 76856; 93976